=== PATIENT | male | born 1995 | race African-American/Black ===

== ENCOUNTER 2019-01-28 09:35 | Emergency (ER) | payer OTHER ==
[2019-01-28 09:47] VITALS: BP 121/71
--- NOTE | 2019-01-28 10:14 | UC ---
Hand/Wrist HPI - HPI Summary HPI Summary: 23-year-old male comes in with a chief complaint of left wrist and left thumb pain. Started about a week ago. It's primarily on the radial aspect and into the base of the left thumb. Pain is worse with range of motion of the wrist and thumb. It is better with rest. No known specific trauma. No numbness or weakness. - History Of Current Complaint Chief Complaint: UCUpperExtremity Stated Complaint: WRIST INJURY Time Seen by Provider: 01/28/19 10:09 Pain Intensity: 0 - Allergies/Home Medications Allergies/Adverse Reactions: Allergies Allergy/AdvReac Type Severity Reaction Status Date / Time No Known Allergies Allergy Verified 01/28/19 09:46 Home Medications: Home Medications NK [No Home Medications Reported] 01/28/19 [History Confirmed 01/28/19] PMH/Surg Hx/FS Hx/Imm Hx Previously Healthy: Yes - Surgical History Surgical History: None - Family History Known Family History: Negative: Cardiac Disease, Hypertension, Diabetes - Social History Alcohol Use: Rare Substance Use Type: None Smoking Status (MU): Never Smoked Tobacco Review of Systems All Other Systems Reviewed And Are Negative: Yes Constitutional: Positive: Negative Skin: Positive: Negative Eyes: Positive: Negative ENT: Positive: Negative Respiratory: Positive: Negative Cardiovascular: Positive: Negative Gastrointestinal: Positive: Negative Motor: Positive: Negative Neurovascular: Positive: Negative Musculoskeletal: Positive: Other: - SEE HPI Neurological: Positive: Negative Psychological: Positive: Negative Is Patient Immunocompromised?: No Physical Exam Triage Information Reviewed: Yes Appearance: Well-Appearing, No Pain Distress, Well-Nourished Vital Signs: Initial Vital Signs Temp 96.8 F 01/28/19 09:43 Pulse 113 01/28/19 09:43 Resp 18 01/28/19 09:43 BP 121/71 01/28/19 09:43 Pulse Ox 97 01/28/19 09:43 Vital Signs Reviewed: Yes Eye Exam: Normal Eyes: Positive: Conjunctiva Clear Neck: Positive: Supple Respiratory: Positive: No respiratory distress Musculoskeletal: Positive: Strength Intact, ROM Intact, Other: - Tender to palpation in the left wrist over the distal radius and into the base of the thumb. No snuffbox tenderness. No swelling. Normal capillary refill. No sensation deficit. Strength 5 out of 5. Neurological Exam: Normal Neurological: Positive: Alert, Muscle Tone Normal Psychological Exam: Normal Psychological: Positive: Age Appropriate Behavior Skin Exam: Normal Hand/Wrist Course/Dx - Course Course Of Treatment: Findings are consistent with tendinitis. We discussed x-rays and were not clinic at them at this time due to the lack of specific trauma. Overall the plan is ice anti-inflammatories and patient was given a thumb spica splint which place by nursing and patient is neurovascularly intact after placement of the thumb spica splint. Will follow-up with sports medicine if not completely improved. - Differential Dx/Diagnosis Provider Diagnosis: Left wrist tendonitis, Left thumb sprain Discharge - Sign-Out/Discharge Documenting (check all that apply): Patient Departure All imaging exams completed and their final reports reviewed: No Studies - Discharge Plan Condition: Stable Disposition: HOME Patient Education Materials: Tendinitis (ED) Referrals: [facility] [Provider Group] Additional Instructions: FOLLOW UP WITH SPORTS MEDICINE IF NOT COMPLETELY IMPROVED. TAKE IBUPROFEN 600MG EVERY 6 HOURS NEEDED. ICE THE AREA. GET REEVALUATED SOONER IF YOUR CONDITION WORSENS OR ANY QUESTIONS OR CONCERNS. - Billing Disposition and Condition Condition: STABLE Disposition: Home
== END 2019-01-28 10:22 | disposition home or self-care (01) ==
LOC: UCEAST 09:35
DX: M77.9 Enthesopathy, unspecified (principal); M25.532 Pain in left wrist; S63.602A Unspecified sprain of left thumb, initial encounter; X58.XXXA Exposure to other specified factors, initial encounter; Y92.9 Unspecified place or not applicable
CPT/HCPCS: 99212; G0463

== ENCOUNTER 2019-04-05 16:59 | Emergency (ER) | payer OTHER ==
[2019-04-05] MEDS ORDERED: Fluorescein Sodium TOPICAL* 1 MG TEST STRIP OPHTHALMIC ONE (17:09)
[2019-04-05] MEDS ORDERED: Tetracaine 0.5% OPTH.SOL 4 ML* 1 DROP BTL RIGHT EYE ONE (17:09)
--- NOTE | 2019-04-05 17:17 | ED ---
Throat Pain/Nasal Congestion - HPI Summary HPI Summary: Patient is a 24 y/o M presenting to ED with complaints of pain, erythema, tearing, blurred vision and photophobia at right eye. He states that he experienced a corneal abrasion to his right eye three years ago when his daughter had accidentally scratched his eye. Patient was evaluated by store worker for this and notes that he received eye drops for his abrasion. Patient states that he has been experiencing present Sx intermittently for the past few years as a result of this corneal abrasion. However, he notes that during the past three weeks Sx have been present daily and worse than previously. He additionally notes that right eye erythema has been present longer than typically today. Patient only reports tearing and denies any other discharge from eye. Eye pain is reported to be worse in the morning. On triage, pain is rated 3/10. He reports that his last store worker visit was last year for glasses. Patient denies contact usage. No recent new eye trauma noted. He denies Sx at left eye, RODRÍGUEZ, fever, congestion. No PMHx, no PSHx. Patient denies any daily medication usage. - History of Current Complaint Chief Complaint: EDEyeProblem Time Seen by Provider: 04/05/19 17:08 Hx Obtained From: Patient Onset/Duration: Lasting Weeks - Sx been present past three years intermittent but have been present more frequently and in greater severity in past three weeks, Still Present, Worse Since - past three weeks Severity: Mild - 3/10 Associated Signs And Symptoms: Positive: Negative Cough: None - Allergies/Home Medications Allergies/Adverse Reactions: Allergies Allergy/AdvReac Type Severity Reaction Status Date / Time No Known Allergies Allergy Verified 04/05/19 17:04 PMH/Surg Hx/FS Hx/Imm Hx Endocrine/Hematology History: Denies: Hx Diabetes, Hx Thyroid Disease Cardiovascular History: Denies: Hx Hypertension Respiratory History: Denies: Hx Asthma, Hx Chronic Obstructive Pulmonary Disease (COPD) GI History: Denies: Hx Ulcer Infectious Disease History: No Infectious Disease History: Denies: Hx Clostridium Difficile, Hx Hepatitis, Hx Human Immunodeficiency Virus (HIV), Hx of Known/Suspected MRSA, Hx Shingles, Hx Tuberculosis, Hx Known/ Suspected VRE, Hx Known/Suspected VRSA, History Other Infectious Disease, Traveled Outside the [place] in Last 30 Days - Family History Known Family History: Negative: Cardiac Disease, Hypertension, Diabetes - Social History Alcohol Use: Rare Hx Substance Use: No Substance Use Type: Reports: None Hx Tobacco Use: No Smoking Status (MU): Never Smoked Tobacco Review of Systems Negative: Fever Eyes: Other - positive - right eye pain; negative - recent eye trauma Positive: Photophobia - right eye , Blurred Vision - right eye , Drainage - tearing of right eye , Erythema - right eye ENT: Negative Cardiovascular: Negative Respiratory: Other - negative - congestion Gastrointestinal: Negative Skin: Negative Neurological: Negative Negative: Headache All Other Systems Reviewed And Are Negative: Yes Physical Exam - Summary Physical Exam Summary: EYES - PERRL, EOMI; right conjunctiva injection at right eye, none at left. No eye discharge noted. 20/20 left eye, 20/25 right eye. Fluorescein exam negative for corneal abrasion. Triston-pen pressures at right eye were 10, 14, 16. Left eye was 17. RESPIRATORY - Lungs clear to auscultation. CARDIOVASCULAR - heart regular rate and rhythm, pulses 2+. Triage Information Reviewed: Yes Vital Signs On Initial Exam: Initial Vitals Temp Pulse Resp BP Pulse Ox 97.7 F 61 19 123/80 96 04/05/19 17:01 04/05/19 17:01 04/05/19 17:01 04/05/19 17:01 04/05/19 17:01 Vital Signs Reviewed: Yes Appearance: Positive: Well-Appearing Skin: Positive: Warm Eyes: Positive: EOMI, MEGAN, Conjunctiva Inflammed - L conjunctival injection w tearing, Discharge - clear/tearing from L eye, Other: - pupils 3-->2 bilaterally , tonopen pressures 14/10/16 L eye, 17 R eye. visual acuity 20/20 R eye, 20/25 L eye ENT: Positive: Normal ENT inspection Neck: Positive: Supple, Nontender, No Lymphadenopathy Respiratory/Lung Sounds: Positive: Clear to Auscultation Cardiovascular: Positive: Normal, RRR Musculoskeletal: Positive: Normal Neurological: Positive: Normal, CN Intact II-III Psychiatric: Positive: Affect/Mood Appropriate Diagnostics - Vital Signs Vital Signs Temp Pulse Resp BP Pulse Ox 04/05/19 17:01 97.7 F 61 19 123/80 96 - Laboratory Lab Statement: Any lab studies that have been ordered have been reviewed, and results considered in the medical decision making process. EENT Course/Dx - Course Course Of Treatment: 24 y/o M with Hx of corneal abrasion from 3 years ago presents with intermittent right eye injected conjunctiva and tearing for the past three weeks. VSS stable and patient in no acute distress. On physical exam , right conjunctival injection noted. Tonopen pressures were good, do not suspect acute angle closure glaucoma. No corneal abrasion on fluorescein exam. No new trauma to eye. Will have patient follow up with store worker and will provide artificial tears. - Diagnoses Provider Diagnoses: Redness of right eye Discharge - Sign-Out/Discharge Documenting (check all that apply): Patient Departure - discharge Patient Received Moderate/Deep Sedation with Procedure: No - Discharge Plan Condition: Stable Disposition: HOME Patient Education Materials: Blurred Vision (ED) Referrals: Joey Stewart MD [Medical Doctor] - 2 Days Additional Instructions: USE ARTIFICIAL TEARS EVERY FOUR HOURS NEEDED IN RIGHT EYE. FOLLOW UP WITH LITERARY AGENT IN 1-2 DAYS. RETURN TO ED FOR ANY NEW OR WORSENING SYMPTOMS, INCLUDING WORSENING VISION, EYE PAIN, OR HEADACHES. - Billing Disposition and Condition Condition: STABLE Disposition: Home - Attestation Statements Document Initiated by Scribe: Yes Documenting Scribe: MAMIE MEHTA Provider For Whom Scribe is Documenting (Include Credential): MARIA LUISA CASPER MD Scribe Attestation: MAMIE Brown, scribed for MARIA LUISA CASPER MD on 04/06/19 at 1029. Scribe Documentation Reviewed: Yes Provider Attestation: The documentation as recorded by the MAMIE rangel accurately reflects the service I personally performed and the decisions made by MARIA LUISA casey MD Status of Scribe Document: Viewed
[2019-04-05] MEDS ORDERED: Artificial Tear OPHTH.OINT* 3.5 GM RIGHT EYE ONE (17:55)
[2019-04-05 18:11] VITALS: BP 121/66
== END 2019-04-05 18:10 | disposition home or self-care (01) ==
LOC: ED 16:59
DX: H57.89 Other specified disorders of eye and adnexa (principal)
CPT/HCPCS: 99282; A9270-GY

== ENCOUNTER → 2019-04-20 17:30 | Emergency (ER) | payer OTHER ==
[2019-04-20 17:34] VITALS: BP 118/81
--- OUTSIDE RECORDS SUMMARY | 2019-04-20 17:40 | XMS REPORT | Continuity of Care Document ---
:1995 External Reference #:[id number] Author Name Joey Stewart M.D. Address [address] [place] [address] Care Team Providers Name Role Phone Jimenez Cabrera Primary Care Physician Unavailable Payers Date Identification Numbers Payment Provider Subscriber PayID: [id number] [employer] [place] Treasure Dawson [address] [place] [id number] Problems Description No Active Problems Family History Date Family Member(s) Observation Comments General No Current Problems Father No Current Problems Mother No Current Problems Social History Type Date Description Comments Sex Unknown Marital Status Has been 1 time Work Status Full-Time Employment ETOH Use Occasionally consumes alcohol Tobacco Use Start: Unknown Patient has never smoked Recreational Drug Use Denies Drug Use Smoking Status Reviewed: 04/08/19 Patient has never smoked Allergies, Adverse Reactions, Alerts Description No Known Drug Allergies Medications Active Medications SIG Qnty Indications Ordering Provider Date Erythromycin Apply To The 1Tube H18.831 Joey Stewart, 04/08/2019 5mg/GM Right Eye AT M.D. Ointment Night History Medications No Active Medications Unknown 04/08/2019 - 04/08/2019 Plan of Treatment 04/08/2019 - Joey Stewart M.D.H18.831 Recurrent erosion of cornea, right eyeNew Medication:Erythromycin 5 mg/GM - Apply To The Right Eye AT NightComments :Smoking can increase the risk of developing or worsening any eye related disease, as well as affect your overall health. If you are a smoker, we strongly recommend that you quit.If you are not a smoker, we strongly recommend that you do not start. You have recurrent corneal erosions in your right eye. Please use tears throughout the day and Refresh PM ointment before bedtime. I WILL PRESCRIBE AN OINTMENT, USE AT NIGHT BEFORE BED TO THE RIGHT EYE FOR 3 WEEKS. IF YOUR SYMPTOMS FAIL TO IMPROVE CALLTHE CLINIC AND WE CAN SCHEDULE A STROMAL MICROPUNCTURE.
--- NOTE | 2019-04-20 18:42 | ED ---
Laceration/Wound HPI - HPI Summary HPI Summary: 24-year-old male presents with left middle finger skin avulsion today. He states he cut it on an onion. Area continuous to bleed. No numbness or tingling. tetanus up-to-date. Has no medical conditions. Has full range motion of finger. Is left-handed. Works at [employer]. - History of Current Complaint Stated Complaint: LEFT RING FINGER LACERATION PER PT Time Seen by Provider: 04/20/19 18:15 Pain Intensity: 8 - Allergy/Home Medications Allergies/Adverse Reactions: Allergies Allergy/AdvReac Type Severity Reaction Status Date / Time No Known Allergies Allergy Verified 04/05/19 17:04 PMH/Surg Hx/FS Hx/Imm Hx Endocrine/Hematology History: Denies: Hx Diabetes, Hx Thyroid Disease Cardiovascular History: Denies: Hx Hypertension Respiratory History: Denies: Hx Asthma, Hx Chronic Obstructive Pulmonary Disease (COPD) GI History: Denies: Hx Ulcer Infectious Disease History: No Infectious Disease History: Denies: Hx Clostridium Difficile, Hx Hepatitis, Hx Human Immunodeficiency Virus (HIV), Hx of Known/Suspected MRSA, Hx Shingles, Hx Tuberculosis, Hx Known/ Suspected VRE, Hx Known/Suspected VRSA, History Other Infectious Disease, Traveled Outside the [place] in Last 30 Days - Family History Known Family History: Negative: Cardiac Disease, Hypertension, Diabetes - Social History Alcohol Use: Rare Hx Substance Use: No Substance Use Type: Reports: None Hx Tobacco Use: No Smoking Status (MU): Never Smoked Tobacco Review of Systems Negative: Fever Negative: Chest Pain Negative: Shortness Of Breath Positive: Other - left middle finger All Other Systems Reviewed And Are Negative: Yes Physical Exam Triage Information Reviewed: Yes Vital Signs On Initial Exam: Initial Vitals Temp Pulse Resp BP Pulse Ox 98.3 F 66 18 118/81 97 04/20/19 17:32 04/20/19 17:32 04/20/19 17:32 04/20/19 17:32 04/20/19 17:32 Vital Signs Reviewed: Yes Appearance: Positive: Well-Appearing Skin: Positive: Warm, Dry, Other - skin avulsion to left middle finger distal Head/Face: Positive: Normal Head/Face Inspection Eyes: Positive: Normal, Conjunctiva Clear ENT: Positive: Pharynx normal Respiratory/Lung Sounds: Positive: Clear to Auscultation, Breath Sounds Present Cardiovascular: Positive: Normal, RRR Musculoskeletal: Positive: Strength/ROM Intact - left middle finger, Other - good pulses Neurological: Positive: Normal Psychiatric: Positive: Normal Procedures - Laceration/Wound Repair 1 Location: Other - left middle finger Description: Irregular Length, Depth and Shape: 1/2cm by 1cm skin avulsion Irrigated w/ Saline (ccs): 200 Sterile Dressing Applied?: Yes - surgical, xeroform, telfa and coband Diagnostics - Vital Signs Vital Signs Temp Pulse Resp BP Pulse Ox 04/20/19 17:32 98.3 F 66 18 118/81 97 - Laboratory Lab Statement: Any lab studies that have been ordered have been reviewed, and results considered in the medical decision making process. Laceration Repair Course/Dx - Course Course Of Treatment: 24-year-old male presents with left middle finger skin avulsion today. He states he cut it on an onion. Area continuous to bleed. No numbness or tingling. tetanus up-to-date. Has no medical conditions. Has full range motion of finger. Is left-handed. Works at [employer]. On exam has 0.5 cm x 1 cm skin avulsion to left middle finger. placed Xeroform, coband , tefla, and surgicel. No current bleeding. Told to change the dressing after 48 hours. Told to watch for any signs of infection. Patient understands agrees with plan. - Differential Dx Differental Diagnoses: Abrasion, Avulsion, Laceration - Clinical Impression Provider Diagnoses: Skin avulsion Discharge - Sign-Out/Discharge Documenting (check all that apply): Patient Departure Patient Received Moderate/Deep Sedation with Procedure: No - Discharge Plan Condition: Good Disposition: HOME Patient Education Materials: Skin Avulsion (ED) Referrals: Jimenez Cabrera NP [Primary Care Provider] - Additional Instructions: Keep area in pressure dressing for 48 hours, after 48 hours check for sign of infection leaving absorbable hemostat on wound and rewrap with pressure dressing for another 24 hours Keep area covered Follow up with primary within 5 days Return to ED if develop any signs of infection such as fever, spreading redness , or pus formation or if bleed through pressure dressing or any new or worsening symptoms - Billing Disposition and Condition Condition: GOOD Disposition: Home
== END | disposition home or self-care (01) ==
LOC: ED 17:30
DX: S61.203A Unspecified open wound of left middle finger without damage to nail, initial encounter (principal); W45.8XXA Other foreign body or object entering through skin, initial encounter; Y92.9 Unspecified place or not applicable
CPT/HCPCS: 99282

== ENCOUNTER 2019-04-24 09:22 | Emergency (ER) | payer OTHER ==
--- NOTE | 2019-04-24 09:39 | ED ---
Laceration/Wound HPI - HPI Summary HPI Summary: Patient is a 24 y/o M presenting to ED with complaints of bleeding from left middle finger. Patient was seen four days ago for having cut the tip of this finger. He was advised to return to ED if his finger began to bleed again. Patient reports that bleeding onset when he was changing the bandages last night. As a result, he would like to be evaluated. No bleeding from finger at present. He is not on antibiotics at present. Home medications and allergies are reviewed. - History of Current Complaint Stated Complaint: FINGER INJURY PER PT Time Seen by Provider: 04/24/19 09:32 Hx Obtained From: Patient Onset/Duration: Lasting Hours, Resolved Timing: Intermittent Episodes Lasting: Current Severity: Mild Pain Intensity: 2 Pain Scale Used: 0-10 Numeric Associated Signs & Symptoms: Negative - Allergy/Home Medications Allergies/Adverse Reactions: Allergies Allergy/AdvReac Type Severity Reaction Status Date / Time No Known Allergies Allergy Verified 04/24/19 09:25 PMH/Surg Hx/FS Hx/Imm Hx Endocrine/Hematology History: Denies: Hx Diabetes, Hx Thyroid Disease Cardiovascular History: Denies: Hx Hypertension Respiratory History: Denies: Hx Asthma, Hx Chronic Obstructive Pulmonary Disease (COPD) GI History: Denies: Hx Ulcer Infectious Disease History: No Infectious Disease History: Denies: Hx Clostridium Difficile, Hx Hepatitis, Hx Human Immunodeficiency Virus (HIV), Hx of Known/Suspected MRSA, Hx Shingles, Hx Tuberculosis, Hx Known/ Suspected VRE, Hx Known/Suspected VRSA, History Other Infectious Disease, Traveled Outside the [place] in Last 30 Days - Family History Known Family History: Negative: Cardiac Disease, Hypertension, Diabetes - Social History Alcohol Use: Rare Hx Substance Use: No Substance Use Type: Reports: None Hx Tobacco Use: No Smoking Status (MU): Never Smoked Tobacco Review of Systems Negative: Fever - on vitals, temp is 98.3 F Skin: Other - positive - bleeding from left middle All Other Systems Reviewed And Are Negative: Yes Physical Exam - Summary Physical Exam Summary: Appearance: Well appearing, no pain distress Skin: warm, dry, reflects adequate perfusion; healing wound over left middle distal phalanx, no active bleeding Head/face: normal Eyes: EOMI, MEGAN ENT: normal Neck: supple, non-tender Respiratory: CTA, breath sounds present Cardiovascular: RRR, pulses symmetrical Abdomen: non-tender, soft Musculoskeletal: normal, strength/ROM intact Neuro: normal, sensory motor intact, A&Ox3 Triage Information Reviewed: Yes Vital Signs On Initial Exam: Initial Vitals Temp Pulse Resp BP Pulse Ox 98.3 F 59 17 143/77 98 04/24/19 09:23 04/24/19 09:23 04/24/19 09:23 04/24/19 09:23 04/24/19 09:23 Vital Signs Reviewed: Yes Diagnostics - Vital Signs Vital Signs Temp Pulse Resp BP Pulse Ox 04/24/19 09:23 98.3 F 59 17 143/77 98 - Laboratory Lab Statement: Any lab studies that have been ordered have been reviewed, and results considered in the medical decision making process. Laceration Repair Course/Dx - Course Course Of Treatment: isatu is a 24 y/o M presenting to ED with complaints of bleeding from left middle finger. Patient was seen four days ago for having cut the tip of this finger. He was advised to return to ED if his finger began to bleed again. Patient reports that bleeding onset when he was changing the bandages last night. As a result, he would like to be evaluated. He is not on antibiotics at present. On physical exam, healing wound over left middle distal phalanx. No active bleeding. Joshua was given a prescription for Bactrim and was discharged to home. - Clinical Impression Provider Diagnoses: Encounter for wound re-check Discharge - Sign-Out/Discharge Documenting (check all that apply): Patient Departure - discharge Patient Received Moderate/Deep Sedation with Procedure: No - Discharge Plan Condition: Stable Disposition: HOME Prescriptions: Sulfamethox/Trimethoprim DS* [Bactrim DS 800/160 TAB*] 1 tab PO DAILY #14 tab Patient Education Materials: Acute Wound Care (ED) Referrals: Jimenez Cabrera, [facility]NER [Primary Care Provider] - 3 Days Additional Instructions: PLEASE RETURN TO ED FOR ANY NEW OR WORSENING SYMPTOMS. - Billing Disposition and Condition Condition: STABLE Disposition: Home - Attestation Statements Document Initiated by Scribe: Yes Documenting Scribe: MAMIE MEHTA Provider For Whom Scribe is Documenting (Include Credential): JULIETH PANDEY MD Scribe Attestation: MAMIE Brown, scribed for JULIETH PANDEY MD on 04/24/19 at 1012. Scribe Documentation Reviewed: Yes Provider Attestation: The documentation as recorded by the scribe, MAMIE MEHTA accurately reflects the service I personally performed and the decisions made by me, JULIETH PANDEY MD Status of Monieibadry Document: Viewed
[2019-04-24 09:47] VITALS: BP 114/73
== END 2019-04-24 09:46 | disposition home or self-care (01) ==
LOC: ED 09:22
DX: S61.213A Laceration without foreign body of left middle finger without damage to nail, initial encounter (principal); W45.8XXA Other foreign body or object entering through skin, initial encounter; Y92.9 Unspecified place or not applicable
CPT/HCPCS: 99282

== ENCOUNTER 2019-04-28 19:11 | Emergency (ER) | payer OTHER ==
[2019-04-28 19:27] VITALS: BP 115/70
--- NOTE | 2019-04-28 20:16 | UC ---
Skin Complaint HPI - HPI Summary HPI Summary: 24-year-old male presents for a wound check of his left middle finger. He was initially seen in the emergency room on 04/20/2019 for an avulsion to the tip of his left middle finger that occurred when he cut it on a mandolin. There was some difficulty with controlling the bleeding so Gelfoam and a pressure bandage were applied. Patient was seen again in the emergency room on 04/21/2019 as he started having some bleeding again after he performed a dressing change however the bleeding was controlled prior to his evaluation. The patient was placed on active DS 1 tab twice a day 7 days at that time for infection prophylaxis. Patient presents tonight because he has developed some discoloration at the base of his fingernail into the medial aspect of the finger and wants to be sure that it was not infection. Denies additional injury, fever, chills, joint pain, swelling, purulent discharge numbness, or tingling. - History of Current Complaint Chief Complaint: UCLaceration Time Seen by Provider: 04/28/19 19:33 Stated Complaint: WOUND RECHECK Hx Obtained From: Patient Pain Intensity: 4 - Allergy/Home Medications Allergies/Adverse Reactions: Allergies Allergy/AdvReac Type Severity Reaction Status Date / Time No Known Allergies Allergy Verified 04/28/19 19:28 PMH/Surg Hx/FS Hx/Imm Hx Previously Healthy: Yes - Denies significant PMH - Surgical History Surgical History: None - Family History Known Family History: Positive: Non-Contributory - Social History Occupation: Employed Full-time Lives: With Family Alcohol Use: Occasionally Substance Use Type: None Smoking Status (MU): Never Smoked Tobacco - Immunization History Most Recent Tetanus Shot: unknown Review of Systems All Other Systems Reviewed And Are Negative: Yes Constitutional: Negative: Fever, Chills Skin: Positive: Other - See HPI Respiratory: Positive: Negative Cardiovascular: Positive: Negative Gastrointestinal: Positive: Negative Genitourinary: Positive: Negative Neurovascular: Negative: Decreased Sensation Musculoskeletal: Negative: Arthralgia, Decreased ROM Neurological: Positive: Negative Is Patient Immunocompromised?: No Physical Exam - Summary Physical Exam Summary: GENERAL APPEARANCE: Well developed, well nourished, alert and cooperative, and appears to be in no acute distress. CARDIAC: Normal S1 and S2. No S3, S4 or murmurs. Rhythm is regular. There is no peripheral edema, cyanosis or pallor. Extremities are warm and well perfused. Capillary refill is less than 2 seconds. Peripheral pulses intact. LUNGS: Clear to auscultation without rales, rhonchi, wheezing or diminished breath sounds. ABDOMEN: Positive bowel sounds. Soft, nondistended, nontender. No guarding or rebound. No masses or hepatosplenomegally. MUSKULOSKELETAL: Normal muscular development. Normal gait. EXTREMITIES: Healing avulsion injury to the tip of the left middle finger with Gel Foam and clot in place. There is ecchymosis to the proximal nailfold, ecchymotic discoloration to the medial aspect of the finger at the DIP with mild tenderness. No erythema or edema noted. Full ROM. Circulation and sensation intact. SKIN: Skin normal color, texture and turgor. Triage Information Reviewed: Yes Vital Signs: Initial Vital Signs Temp 98.3 F 04/28/19 19:24 Pulse 77 04/28/19 19:24 Resp 18 04/28/19 19:24 BP 115/70 04/28/19 19:24 Pulse Ox 99 04/28/19 19:24 Vital Signs Reviewed: Yes Diagnostics - Laboratory Lab Results: 24-year-old male presents for a wound check of his left middle finger. He was initially seen in the emergency room on 04/20/2019 for an avulsion to the tip of his left middle finger that occurred when he cut it on a mandolin. There was some difficulty with controlling the bleeding so Gelfoam and a pressure bandage were applied. Patient was seen again in the emergency room on 04/21/2019 as he started having some bleeding again after he performed a dressing change however the bleeding was controlled prior to his evaluation. The patient was placed on active DS 1 tab twice a day 7 days at that time for infection prophylaxis. Patient presents tonight because he has developed some discoloration at the base of his fingernail into the medial aspect of the finger and wants to be sure that it was not infection. Denies additional injury, fever, chills, joint pain, swelling, purulent discharge numbness, or tingling. Afebrile. Vital signs stable. Patient had a healing avulsion injury to the tip of the left middle finger with Gelfoam and clot in place. There is ecchymosis to the proximal nailfold, ecchymotic discoloration to the medial aspect of the finger at the DIP with mild tenderness. No erythema or edema noted. Full ROM. Circulation and sensation intact. I discussed with the patient that I did not feel that the discoloration appeared to be an infectious process but I consult ahead Dr. Alvarez who co-evaluated the patient with me and agreed with my assessment. I'm recommending that he continue the Bactrim as prescribed and do some watchful waiting at this time. He is to follow-up with his primary care provider in 3-5 days for a wound check. Anticipatory guidance and warning symptoms were reviewed with the patient. Verbalized understanding and agrees with plan of care. Course/Dx - Differential Diagnoses - Skin Complaint Differential Diagnoses: Cellulitis, Lymphangitis, Other - wound infection, ecchymosis - Diagnoses Provider Diagnosis: Discoloration of skin of finger Discharge - Sign-Out/Discharge Documenting (check all that apply): Patient Departure All imaging exams completed and their final reports reviewed: No Studies - Discharge Plan Condition: Stable Disposition: HOME Patient Education Materials: Acute Wound Care (ED) Referrals: Jimenez Cabrera NP [Primary Care Provider] - 3 Days Additional Instructions: The wound on your finger appears healing well. The discoloration to the side of your finger does not appear to be an infectious process and would recommend watchful waiting at this time. Continue taking the Bactrim as prescribed. Follow-up with your primary care provider in 3-5 days for a recheck the wound. Seek immediate medical attention if you develop a fever greater than 100.5 F, the redness continues to spread, the finger swells, you have severe pain that is not managed with [id number] pain medications, or any worsening of symptoms. - Billing Disposition and Condition Condition: STABLE Disposition: Home
== END 2019-04-28 20:27 | disposition home or self-care (01) ==
LOC: UCEAST 19:11
DX: S61.213D Laceration without foreign body of left middle finger without damage to nail, subsequent encounter (principal); W26.8XXD Contact with other sharp object(s), not elsewhere classified, subsequent encounter
CPT/HCPCS: 99211; G0463

== ENCOUNTER 2021-11-26 20:00 | Observation (INO) ==
[2021-11-26] MEDS ORDERED: NS 0.9% 1000 ml BAG 1,000 ML IV ONE (20:18)
[2021-11-26] MEDS ORDERED: Ondansetron 4 mg VIAL 2 MG/ML 2 ml VIAL IV ONE (20:18)
[2021-11-26 22:48] LABS: ABS Eosinophils 0.1 10^3/ul (0-0.6); ABS Lymphocytes 1.4 10^3/ul (1.0-4.8); ABS Monocytes 0.5 10^3/ul (0-0.8); ABS Neutrophils 2.8 10^3/ul (1.5-7.7); Eosinophil % 1.6 %; Hematocrit 42 % (42-52); Hemoglobin 14.3 g/dL (14.0-18.0); Lymphocyte % 28.9 %; Mean Corpuscular HGB Conc 34 g/dL (31-36); Mean Corpuscular Hemoglobin 31 pg (27-31); Mean Corpuscular Volume 91 fL (80-94); Mean Platelet Volume 7.9 fL (7.4-10.4); Platelet Count 200 10^3/uL (150-450); Red Blood Count 4.62 10^6 /uL (4.18-5.48); Red Cell Distribution Width 14 % (10-15); White Blood Count 4.7 10^3/uL (3.5-10.8)
[2021-11-26 22:57] LABS: Albumin 4.3 g/dL (3.2-5.2); Albumin/Globulin Ratio 1.5 (1-3); C Reactive Protein 7.25 mg/L (<8.01); Calcium 9.7 mg/dL (8.6-10.3); Globulin 2.8 g/dL (2-4); Magnesium 1.9 mg/dL (1.9-2.7); Potassium 3.8 mmol/L (3.5-5.0); Total Protein 7.1 g/dL (6.4-8.9); eGFR CKD-EPI 76.5 (>60)
[2021-11-26] MEDS ORDERED: Iohexol 300 (CONTRAST) 10 ML SDV IV ONE (23:18)
[2021-11-27 00:48] LABS: Rapid COVID-19 Molecular Undetected (Undetected)
[2021-11-27 01:32] LABS: Hepatitis B Surface Antigen Nonreactive (Nonreactive)
[2021-11-27 01:37] LABS: Hepatitis A Ab IgM Negative (Negative); Hepatitis B Core IgM Nonreactive (Nonreactive)
[2021-11-27 01:49] LABS: Hepatitis C Antibody Negative (Negative)
[2021-11-27] MEDS ORDERED: Ondansetron 4 mg VIAL 2 MG/ML 2 ml VIAL IV PRN (04:55)
[2021-11-27] MEDS ORDERED: Lactated Ringers 1000 ml BAG 1,000 ML IV SCH (05:00)
[2021-11-27 05:57] LABS: ABS Eosinophils 0.1 10^3/ul (0-0.6); ABS Lymphocytes 1.2 10^3/ul (1.0-4.8); ABS Monocytes 0.5 10^3/ul (0-0.8); Eosinophil % 2.3 %; Hematocrit 41 % (42-52); Hemoglobin 14.1 g/dL (14.0-18.0); Mean Corpuscular HGB Conc 34 g/dL (31-36); Mean Corpuscular Hemoglobin 31 pg (27-31); Mean Corpuscular Volume 90 fL (80-94); Mean Platelet Volume 7.7 fL (7.4-10.4); Nucleated Red Blood Cells % 0.3; Platelet Count 194 10^3/uL (150-450); Red Blood Count 4.59 10^6 /uL (4.18-5.48); Red Cell Distribution Width 14 % (10-15); White Blood Count 3.8 10^3/uL (3.5-10.8)
[2021-11-27 06:06] LABS: Urine Benzodiazepine Screen None Detected (None Detect); Urine Cannabinoids Screen None Detected (None Detect); Urine Opiates Screen None Detected (None Detect)
[2021-11-27 06:10] LABS: Albumin/Globulin Ratio 1.4 (1-3); Alkaline Phosphatase 49 U/L (35-149); Anion Gap 5 mmol/L (2-11); Blood Urea Nitrogen 15 mg/dL (6-24); CO2 Carbon Dioxide 29 mmol/L (22-32); Calcium 9.1 mg/dL (8.6-10.3); Chloride 103 mmol/L (101-111); Creatine Kinase 116 U/L (10-223); Globulin 2.8 g/dL (2-4); Glucose 107 mg/dL (70-100); Potassium 3.8 mmol/L (3.5-5.0); Sodium 137 mmol/L (135-145); Total Protein 6.8 g/dL (6.4-8.9); eGFR CKD-EPI 80.2 (>60)
[2021-11-27 06:17] LABS: Urine Appearance Clear; Urine Bilirubin Negative (Negative); Urine Blood Negative (Negative); Urine Color Yellow; Urine Glucose Negative (Negative); Urine Ketones Negative (Negative); Urine Nitrite Negative (Negative); Urine Protein Negative (Negative); Urine Urobilinogen Negative (Negative)
[2021-11-27 06:21] LABS: Urine Specific Gravity > 1.060 (1.002-1.030)
[2021-11-27 06:26] LABS: INR 1.29 (0.86-1.15)
[2021-11-27 06:31] LABS: Urine Creatinine Concentration 191.29 mg/dL
[2021-11-27 06:31] LABS: ALT 2567 U/L (7-52); AST 1614 U/L (13-39)
[2021-11-27 06:38] LABS: Acetaminophen < 15 mcg/mL; Salicylate < 2.50 mg/dL (<30)
[2021-11-27 06:46] LABS: HIV 4th Generation Nonreactive (Nonreactive)
[2021-11-27 15:00] VITALS: BP 115/71
[2021-11-27 16:45] LABS: INR 1.32 (0.86-1.15)
[2021-11-27 17:24] LABS: Albumin/Globulin Ratio 1.7 (1-3); Direct Bilirubin 0.2 mg/dL (0.03-0.18); Globulin 2.4 g/dL (2-4); Indirect Bilirubin 0.7 mg/dL (0.3-1.0); Total Bilirubin 0.9 mg/dL (0.2-1.0); Total Protein 6.4 g/dL (6.4-8.9)
[2021-11-29 10:34] LABS: Ceruloplasmin 22.5 mg/dL
[2021-11-29 14:03] LABS: Copper Level 0.94 mcg/mL (0.75-1.45)
[2021-11-29 15:05] LABS: Varicella-Zoster IgM Antibody Negative (Negative)
[2021-11-29 18:20] LABS: Liver/Kidney Microsomes Ab <5.0 U
[2021-11-29 18:34] LABS: CMV DNA DETECT/QT, P Undetected IU/mL (Undetected)
[2021-11-29 21:11] LABS: HSV 1 PCR, Blood Negative (Negative); HSV 2 PCR, Blood Negative (Negative)
== END 2021-11-27 19:05 | disposition home or self-care (01) ==
LOC: ED 20:00 → EDHOLD 20:00 → SUATTDRO 11-27 04:53 → MED 11-27 06:31
PROVIDERS: ADMIT Internal Medicine; ATTEND Student in an Organized Health Care Education/Training Program